=== PATIENT | female | born 1940 | race Caucasian/White ===

== ENCOUNTER 2023-07-02 16:40 | Emergency (ER) | payer OTHER ==
[~2023-07-02] VITALS: Ht 154.9 cm; Wt 77.1 kg
[2023-07-02] MEDS ORDERED: TDAP [DIPH/PERTUSSIS/TET] 0.5 ML VIAL IM ONE ×2 (20:30→20:34)
[2023-07-02] MEDS ORDERED: BACI/NEOM/POLY B OINT PKT 1 UDPKT PACKET TP ONE (20:30)
[2023-07-03 00:19] VITALS: BP 145/65; TEMP 98.2; O2SAT 94
== END 2023-07-03 00:32 ==
LOC: ER 16:41
DX: S00.31XA Abrasion of nose, initial encounter (principal); R51.9 Headache, unspecified; R41.82 Altered mental status, unspecified; M54.2 Cervicalgia; I10 Essential (primary) hypertension; E11.9 Type 2 diabetes mellitus without complications; K21.9 Gastro-esophageal reflux disease without esophagitis; E03.9 Hypothyroidism, unspecified; Z88.0 Allergy status to penicillin; Z88.2 Allergy status to sulfonamides; W18.30XA Fall on same level, unspecified, initial encounter; Y93.89 Activity, other specified; Y92.89 Other specified places as the place of occurrence of the external cause; Y99.8 Other external cause status
CPT/HCPCS: 70450-TC; 70486-TC; 72125-TC; 90715

== ENCOUNTER 2024-06-15 19:11 | Emergency (ER) | payer OTHER ==
[~2024-06-15] VITALS: Ht 157.5 cm; Wt 90.7 kg
[2024-06-15 19:41] VITALS: TEMP 98.4
[2024-06-15 20:15] LABS: BASOPHILS # (AUTO) 0.1 K/uL (0.0-0.2); BASOPHILS % (AUTO) 0.5 % (0.0-2.0); EOSINOPHILS # (AUTO) 0.5 K/uL (0.0-0.7); EOSINOPHILS % (AUTO) 2.8 % (0.0-6.0); HEMATOCRIT 42 % (33-45); HEMOGLOBIN 13.4 g/dL (11.5-14.8); LYMPHOCYTES # (AUTO) 1.3 K/uL (0.8-4.8); LYMPHOCYTES % (AUTO) 7.4 % (20.0-44.0); MEAN CORPUSCULAR HEMOGLOBIN 27 PG (26.0-33.0); MEAN CORPUSCULAR HGB CONC 32 g/dl (31.0-36.0); MEAN CORPUSCULAR VOLUME 86 fL (82-100); MONOCYTES # (AUTO) 0.6 K/uL (0.1-1.30); MONOCYTES % (AUTO) 3.6 % (2.0-12.0); NEUTROPHILS # (AUTO) 14.8 K/uL (1.8-8.9); NEUTROPHILS % (AUTO) 85.7 % (43.0-81.0); PLATELET COUNT (AUTO) 188 K/uL (150-450); RED CELL DISTRIBUTION WIDTH 15.6 % (11.5-15.0); WHITE BLOOD COUNT (AUTO) 17.3 K/uL (4.3-11.0)
[2024-06-15 20:19] LABS: CALCIUM, SERUM 9.3 mg/dL (8.5-10.1); CARBON DIOXIDE 27 mmol/L (21-32); CHLORIDE 100 mmol/L (98-107); CREATININE 1.4 mg/dL (0.6-1.3); GLUCOSE 275 mg/dL (74-106); POTASSIUM 3.9 mmol/L (3.5-5.1); SODIUM SERUM 138 mmol/L (136-145); UREA NITROGEN, BLOOD 30 mg/dL (7-18)
[2024-06-15 20:32] LABS: NT-PRO BNP 897 pg/mL (0-125)
[2024-06-15 20:33] LABS: EOSINOPHILS % (MANUAL) 4 % (0-4); LYMPHOCYTES % (MANUAL) 6 % (16-48); MONOCYTES % (MANUAL) 4 % (0-11.0); NEUTROPHILS % (MANUAL) 86 (42-76); PLATELET ESTIMATE ADEQUATE
[2024-06-15 20:34] LABS: OVALOCYTES 1+; STOMATOCYTES 1+
[2024-06-15] MEDS ORDERED: NITROGLYCERIN 0.4 MG/TAB BOTTLE ONE (20:46)
[2024-06-15] MEDS: NITROGLYCERIN 0.4 MG/TAB BOTTLE SL ONE (20:50)
[2024-06-15 21:00] LABS: ALBUMIN 3.1 g/dL (3.4-5.0); BILIRUBIN,DIRECT 0.1 mg/dL (0.0-0.2); BILIRUBIN,TOTAL 0.3 mg/dL (0.2-1.0); TOTAL PROTEIN, SERUM 7.5 g/dL (6.4-8.2)
[2024-06-15] MEDS: ASPIRIN 325 MG TABLET PO ONE (21:11)
[2024-06-15] MEDS ORDERED: ENOXAPARIN SODIUM 100 MG/ML DISP.SYRIN SQ ONE (21:12)
[2024-06-15] MEDS: ENOXAPARIN SODIUM 80 MG/0.8 ML DISP.SYRIN SQ ONE (21:18)
[2024-06-15 21:57] LABS: APPEARANCE,URINE CLEAR (CLEAR); BILIRUBIN,URINE NEGATIVE (NEGATIVE); BLOOD, URINE 1+ Ery/uL (NEGATIVE); COLOR,URINE OTHER (YELLOW); KETONES,URINE NEGATIVE (NEGATIVE); LEUKOCYTE ESTERASE ,URINE 1+ (NEGATIVE); NITRITE, URINE NEGATIVE (NEGATIVE); PROTEIN,URINE NEGATIVE (NEGATIVE); UGLUCOSE 3+ mg/dL (NEGATIVE); UROBILINOGEN,URINE 0.2 EU/dL (0.2)
[2024-06-15 22:10] LABS: ADD URINE CULTURE YES; BACTERIA,URINE 1+ /HPF (None Seen); YEAST,URINE Few /HPF (None Seen)
[2024-06-16 01:13] VITALS: BP 172/84; O2SAT 98
== END 2024-06-16 02:07 | disposition short-term general hospital (02) ==
LOC: ER 19:12
DX: I21.4 Non-ST elevation (NSTEMI) myocardial infarction (principal); N17.9 Acute kidney failure, unspecified; I25.10 Atherosclerotic heart disease of native coronary artery without angina pectoris; I10 Essential (primary) hypertension; E11.9 Type 2 diabetes mellitus without complications; K21.9 Gastro-esophageal reflux disease without esophagitis; J44.9 Chronic obstructive pulmonary disease, unspecified; E03.9 Hypothyroidism, unspecified; M81.0 Age-related osteoporosis without current pathological fracture; Z88.0 Allergy status to penicillin; Z88.2 Allergy status to sulfonamides; Z20.822 Contact with and (suspected) exposure to COVID-19
CPT/HCPCS: 99291; 87426; 99292; 96372; 93005; 71045; 85025; 80048; 87086; 83690; 80076; 81001; 36415; 84484 ×2; 83880; 87040; 85007; J1650